=== PATIENT | female | born 1950 | race Caucasian/White ===

== ENCOUNTER → 2023-07-19 | Outpatient (CLI) | payer MEDICARE ==
[2023-07-19 16:35] LABS: Basophils # (A) 0.06 X 10*3/uL (0.00-0.10); Basophils % (A) 1.4 %; Eosinophils % (A) 4.7 %; HCT 43.1 % (37.2-46.3); HGB 13.7 g/dL (12.0-15.0); Lymphocytes % (A) 28.2 %; MCHC 31.8 g/dL (32.0-37.0); MCV 94.5 FL (80.0-97.0); Mean Platelet Volume 10.9 FL (9.5-12.2); Monocytes # (A) 0.38 X 10*3/uL (0.20-1.00); Monocytes % (A) 8.9 %; NRBC Per 100 WBC 0 X 10*3/uL (0.00-0.01); Neutrophils # (A) 2.41 X 10*3/uL (1.80-7.70); Neutrophils % (A) 56.6 %; Platelet Count 212 X 10*3/uL (140-440); RBC 4.56 X 10*6/uL (4.10-5.20); RDW 13.6 % (11.5-14.5); WBC 4.26 X 10*3/uL (4.50-10.00)
[2023-07-19 17:30] LABS: % Iron Saturation 22.68 (12.00-45.00); ALT 19 U/L (8-44); AST 25 U/L (13-35); Albumin 4.5 g/dL (3.8-4.9); Albumin/Globulin Ratio 2.14 Ratio (1.60-3.17); Alkaline Phosphatase 71 U/L (41-126); Blood Urea Nitrogen 15.4 mg/dL (9.0-27.0); Calcium 9.6 mg/dL (8.7-10.3); Carbon Dioxide 26.7 mmol/L (21.6-31.8); Chloride 101 mmol/L (96-109); Chol/HDL Ratio 2.09 Ratio; Globulin 2.1 g/dL (1.6-3.3); Glucose 103 mg/dL (70-110); Iron 93 UG/DL (50-170); LDL Cholesterol,Calculated 81.5 mg/dL (0.0-131.0); Potassium 4.5 mmol/L (3.5-5.5); Sodium 140 mmol/L (135-145); Total Bilirubin 0.4 mg/dL (0.3-1.2); Total Iron Binding Capacity 410 UG/DL (228-460); Total Protein 6.6 g/dL (6.2-8.2); VLDL Calculation 10.86 mg/dL (5.00-40.00)
== END | disposition home or self-care (01) ==
LOC: LABWHC1 09:49
PROVIDERS: ATTEND Internal Medicine Cardiovascular Disease
DX: E78.2 Mixed hyperlipidemia (principal); E03.9 Hypothyroidism, unspecified; M19.041 Primary osteoarthritis, right hand; R53.83 Other fatigue
CPT/HCPCS: 36415; 80053; 80061; 82306; 83540; 83550; 84439; 84443; 84481; 84482; 84630; 85025; 86376; 86800

== ENCOUNTER → 2023-11-22 | Outpatient (CLI) | payer MEDICARE ==
--- NOTE | 2023-11-22 11:18 | CTL ---
EXAMINATION TYPE: CT Low Dose Lung DATE OF EXAM ORDERED: 11/22/2023 HISTORY: . Lung cancer screening CT DLP: 50.[address] CTDI: 1.4 mGy Automated exposure control for dose reduction was used. SCREENING VISIT: COMPARISON: None TECHNIQUE: Low dose computed tomography scan was performed through the chest at 1 mm thick sections a nd reconstructed images in multiple planes at 1 mm and [address] DIAGNOSTIC QUALITY: Satisfactory FINDINGS: Mild emphysematous changes with subsegmental areas of scarring or atelectasis. There is biapical pleu ral thickening or scarring. There is no evidence of pulmonary edema or consolidative pneumonia. Subpleural pulmonary 1 to 2 mm micronodules in bilateral upper lobes have a benign appearance. Additi onal 2 mm pulmonary micronodule image 173 series 4. Within the right lower lobe there is a 2 mm subpl eural posterior pulmonary micronodule likely is postinflammatory reference image 171 series 4. There is a 2 mm right upper lobe pulmonary nodule image 96 series 4. Airways are patent. Aorta of normal caliber with mild atherosclerotic change. Moderate coronary arter y calcification. Heart size normal. Assessment for adenopathy limited by lack of contrast. No obvious pathologic adenopathy. Hypertrophic and degenerative changes spine. Structures of the upper abdomen demonstrate no definite acute process. There is a small hiatal hernia. Thickening to the adrenal gland on the left likely rel ated to benign hyperplasia or adenoma. IMPRESSION: 1. Mild COPD with bilateral pulmonary micronodules which have a benign appearance. 2 coronary artery calcifications. 3. Small hiatal hernia. CT LUNG RAD AND CT CHEST RECOMMENDATION: Lung-Rad 2 Benign Appearance or Behavior: Continue annual sc reening with LDCT in 12 months. [facility], , 11/22/2023 11:15 AM
== END | disposition home or self-care (01) ==
LOC: RADCTMAIN 09:10
PROVIDERS: ATTEND Family Medicine
DX: Z12.2 Encounter for screening for malignant neoplasm of respiratory organs (principal); J44.9 Chronic obstructive pulmonary disease, unspecified; I25.10 Atherosclerotic heart disease of native coronary artery without angina pectoris; K44.9 Diaphragmatic hernia without obstruction or gangrene; Z87.891 Personal history of nicotine dependence
CPT/HCPCS: 71271

== ENCOUNTER → 2024-01-02 | Outpatient (CLI) | payer MEDICARE | END | disposition home or self-care (01) | LOC: LABWHC1 14:46 | PROVIDERS: ATTEND Internal Medicine Endocrinology, Diabetes & Metabolism | DX: E04.2 Nontoxic multinodular goiter (principal) | CPT/HCPCS: 36415; 84436; 84443; 84481 ==

== ENCOUNTER → 2024-03-05 | Outpatient (CLI) | payer MEDICARE ==
--- NOTE | 2024-03-07 09:08 | BMR ---
EXAM DATE: 03/05/2024 EXAM DESCRIPTION: MRI-Breast Bilat (W/WO Contrast) INDICATION: Swelling and tenderness in the left axilla/axillary tail region. History of left breast cancer status post breast conserving therapy in 2017. COMPARISON: Comparison was made to prior relevant imaging available in PACS TECHNIQUE: Multiplanar multisequence breast MRI was performed prior to and after administration of 6.0 mL of Gadabutrol intravenously. Post processing was performed utilizing a [employer] workstation. The technical portion of this study was performed at [facility] with radiological interpretation by [facility] radiology. FINDINGS: BACKGROUND PARENCHYMAL ENHANCEMENT: Mild in the right breast and minimal in the left breast. This slight asymmetry in the background parenchymal enhancement is likely related to history of radiation in the left breast. BREAST COMPOSITION: The breasts are composed of scattered fibroglandular tissue. RIGHT BREAST: Review of the dynamic contrast enhanced series shows no rapidly enhancing masses, suspicious enhancement patterns or other abnormalities. The T2 weighted series show no abnormality. LEFT BREAST: Postsurgical changes with signal voids from surgical clips are present in the upper outer posterior depth of the breast/axillary tail region. Review of the dynamic contrast enhanced series shows no rapidly enhancing masses, suspicious enhancement pattern or other abnormalities. The T2 weighted series show no abnormality. LYMPH NODES: No axillary or internal mammary lymphadenopathy. Signal voids from surgical clips in the left axilla. IMPRESSION: Right breast: BI-RADS Category 1-negative. No MRI evidence of malignancy. Recommendation: MRI screening in 1 year Left breast: BI-RADS Category 2-benign. Postsurgical changes in the upper outer posterior depth of the breast/axillary tail region. No MR evidence of malignancy. Recommendation: Recommend continuous clinical follow-up of area of concern in the left axilla which is without definitive MR correlate. Recommend routine MRI screening in 1 year. OVERALL ASSESSMENT- BI-RADS 2 ANNUAL SCREENING BREAST MRI IN ADDITION TO MAMMOGRAPHY IS RECOMMENDED IN PATIENTS WITH LIFETIME RISK OF BREAST CANCER >20% MTDD
== END | disposition home or self-care (01) ==
LOC: RADMRIMAIN 20:45
PROVIDERS: ATTEND Internal Medicine Medical Oncology
DX: C50.412 Malignant neoplasm of upper-outer quadrant of left female breast (principal); Z85.3 Personal history of malignant neoplasm of breast; Z98.890 Other specified postprocedural states
CPT/HCPCS: C8908; A9585; 77049

== ENCOUNTER → 2024-06-24 | Outpatient (CLI) | payer MEDICARE ==
[2024-06-24 15:54] LABS: T4, Free (Free Thyroxine) 1.65 ng/dL (0.80-1.80)
[2024-06-25 14:57] LABS: Thyroid Stim Immun Quant <0.10 IU/L (<0.10)
== END | disposition home or self-care (01) ==
LOC: LABWHC1 07:53
PROVIDERS: ATTEND Internal Medicine Endocrinology, Diabetes & Metabolism
DX: E05.00 Thyrotoxicosis with diffuse goiter without thyrotoxic crisis or storm (principal); E03.9 Hypothyroidism, unspecified; E06.3 Autoimmune thyroiditis
CPT/HCPCS: 36415; 82306; 84255; 84439; 84443; 84445; 84481; 86376

== ENCOUNTER → 2024-07-03 | Outpatient (CLI) | payer MEDICARE ==
--- NOTE | 2024-07-03 11:01 | CT ---
EXAMINATION TYPE: CT orbits wo con DATE OF EXAM: 07/03/2024 10:13 AM COMPARISON: None. 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 No IV or oral contrast was u tilized. CT DLP: 313.7 mGycm, Automated exposure control for dose reduction was used. Findings: There is no abnormality of visualized intracranial structures. There is no evidence of fractures. Optic canals appear normal. Optic nerves are symmetrical bilaterally. There is no intraocular abnorm ality appreciated. Extraocular muscles are symmetrical bilaterally. There is no retrobulbar orbital m ass. The optic chiasm has a normal appearance. The sella and cavernous sinuses show no gross abnormalities on noncontrast CT. Scattered trace mucosal thickening ethmoid air cells and right maxillary sinus. Undulating nasal sept um. Old angulated left nasal bone fracture. Overlying soft tissue swelling. Small portion the visualized mastoid air cells appear clear. IMPRESSION: 1. Trace mucosal thickening ethmoid air cells and right maxillary sinus, undulating nasal septum, and old left nasal bone fracture. 2. Otherwise, no specific abnormality on CT of the orbits. [facility], , 07/03/2024 10:58 AM
== END | disposition home or self-care (01) ==
LOC: RADCTMAIN 08:58
PROVIDERS: ATTEND Ophthalmology
DX: S02.2XXA Fracture of nasal bones, initial encounter for closed fracture (principal); E05.00 Thyrotoxicosis with diffuse goiter without thyrotoxic crisis or storm; J34.89 Other specified disorders of nose and nasal sinuses; J34.2 Deviated nasal septum; X58.XXXA Exposure to other specified factors, initial encounter
CPT/HCPCS: 70480